=== PATIENT | female | born 1990 | race Caucasian/White ===

== ENCOUNTER 2023-04-08 19:25 | Emergency (ER) | payer OTHER, SELFPAY ==
[2023-04-08 19:42] VITALS: BP 105/72; PULSE 88; RESP 18; TEMP 36.9; O2SAT 97
[2023-04-08 20:15] LABS: Basophils Absolute Auto 0.03 K/mm3 (0.00-0.10); Basophils Percent Auto 0.4 % (0.0-1.0); Eosinophils Absolute Auto 0.09 K/mm3 (0.02-0.50); Eosinophils Percent Auto 1.2 % (1.0-6.0); Hematocrit 36.4 % (35.0-49.0); Hemoglobin 12.2 g/dL (12.0-15.0); Immature Granulocyte Absolute 0.02 K/mm3 (0.00-0.00); Immature Granulocyte Percent A 0.3 % (0.0-0.0); Lymphocytes Absolute Auto 2.45 K/mm3 (1.10-4.50); Lymphocytes Percent Auto 31.7 % (18.0-42.0); Mean Corpuscular HGB Conc 33.5 g/dL (32.0-36.0); Mean Corpuscular Volume 83.7 fL (78.0-102.0); Mean Platelet Volume 9.7 fl (9.2-11.8); Monocytes Absolute Auto 0.55 K/mm3 (0.10-0.90); Monocytes Percent Auto 7.1 % (2.0-11.0); Neutrophils Absolute Auto 4.6 K/mm3 (1.7-7.2); Neutrophils Percent Auto 59.3 % (50.0-70.0); Platelet Count Result 207 K/mm3 (150-420); Red Blood Count 4.35 M/mm3 (4.20-5.40); Red Cell Distribution Width 12.7 % (11.6-14.4); White Blood Count 7.7 K/mm3 (4.8-10.8)
[2023-04-08 20:31] LABS: Alanine Aminotransferase 20 U/L (14-59); Albumin Level 4.1 g/dL (3.4-5.0); Alkaline Phosphatase 95 U/L (46-116); Anion Gap 6 mmol/L (8-16); Aspartate Amino Transferase 13 U/L (15-37); Bilirubin,Total 0.4 mg/dL (0.00-1.00); Blood Urea Nitrogen 2 mg/dL (7-18); Calcium 9.4 mg/dL (8.5-10.1); Carbon Dioxide 31 mmol/L (21-32); Chloride 98 mmol/L (98-108); Estimated Glomerular Filt Rate > 60; Glucose 115 mg/dL (70-99); Osmolality Calculated 277 mOsm/kg (285-295); Potassium 3.2 mmol/L (3.5-5.1); Sodium 135 mmol/L (136-145); Total Protein 7.7 g/dL (6.4-8.2)
[2023-04-08 20:35] LABS: Lactic Acid Reflex 0.8 mmol/L (0.4-2.0)
--- NOTE | 2023-04-08 20:49 | ED.WOUNDLAC ---
HPI - Wound/Laceration General Chief Complaint: Wound/Laceration Stated Complaint: wound with pus drainage l hip Time Seen by Provider: 04/08/23 19:27 Source: patient Mode of arrival: ambulatory Limitations: no limitations History of Present Illness HPI narrative: this is a 32-year-old female who presents with a area of erythema with a central lesion approximately 3cm in diameter that is red warm currently draining nonfluctuant with low-grade fever, with no chest pain no shortness of breath patient has no history of diabetes. Onset (ago): day(s) Location: other Extremity Location: Left: thigh ( nonfluctuant red draining area approximately 3cm in diameter) Related Data Home Medications Medication Instructions Recorded Confirmed calcium carbonate 200 mg calcium 200 mg PO BID 05/13/20 (500 mg) chewable tablet (Tums) glucosamine-chondroitin 250 mg-200 2 tablet PO TID 05/13/20 mg tablet (Osteo Bi-Flex) medroxyprogesterone 150 mg/mL 150 mg IM [id number] 05/13/20 intramuscular suspension (Depo-Provera) Allergies Allergy/AdvReac Type Severity Reaction Status Date / Time weed pollen Allergy Mild unknown Verified 04/08/23 19:27 Review of Systems Review of Systems: All systems reviewed & are unremarkable except as noted in HPI and below PMFSH Past Medical History Medical History GERD (gastroesophageal reflux disease) Social History Social History Smoking status: Current every day smoker Tobacco type: cigarettes Substance use: current Exam Const: General: healthy appearing Nutritional Appearance: well nourished Orientation/consciousness: patient oriented x3 Limitations: no limitations Chest: Chest palpation & inspection: normal inspection of the chest Resp: Effort & Inspection: normal respiratory effort Auscultation: clear to auscultation bilaterally Cardio: Rate: regular rate Rhythm: regular rhythm GI: GI Palp: Yes Soft to palpation Skin: General skin exam: normal color Wounds: wounds noted Other: 3Cm lesion that is warm red and tender to touch it is nonfluctuant currently there is some drainage. Extrem: General: normal to inspection Psych: Mental Status: mental status grossly normal Affect: normal affect Course Course Emergency Course: Patient had labs performed white count is normal patient had a decreased potassium will give her a dose of p.o. potassium, patient received IV ceftriaxone labs reviewed patient and be sending antibiotic to patient's pharmacy. Vital Signs Vital signs: Vital Signs Temperature 36.9 C 04/08/23 19:42 Pulse Rate 88 04/08/23 19:42 Respiratory Rate 18 04/08/23 19:42 Blood Pressure 105/72 04/08/23 19:42 Pulse Oximetry 97 04/08/23 19:42 Oxygen Delivery Room Air 04/08/23 19:42 Temperature 36.9 C 04/08/23 19:42 Pulse Rate 88 04/08/23 19:42 Respiratory Rate 18 04/08/23 19:42 Blood Pressure 105/72 04/08/23 19:42 Pulse Oximetry 97 04/08/23 19:42 Oxygen Delivery Room Air 04/08/23 19:42 MDM - Wound/Laceration Lab Data 04/08/23 20:08 04/08/23 20:08 Labs: Lab Results 04/08/23 Range/Units 20:08 WBC 7.7 (4.8-10.8) K/mm3 RBC 4.35 (4.20-5.40) M/mm3 Hgb 12.2 (12.0-15.0) g/dL Hct 36.4 (35.0-49.0) % MCV 83.7 (78.0-102.0) fL MCH 28.0 (27.0-31.0) pg MCHC 33.5 (32.0-36.0) g/dL RDW 12.7 (11.6-14.4) % Plt Count 207 (150-420) K/mm3 MPV 9.7 (9.2-11.8) fl Immature Gran % (Auto) 0.3 H (0.0-0.0) % Neut % (Auto) 59.3 (50.0-70.0) % Lymph % (Auto) 31.7 (18.0-42.0) % [place] % (Auto) 7.1 (2.0-11.0) % Eos % (Auto) 1.2 (1.0-6.0) % Baso % (Auto) 0.4 (0.0-1.0) % Lymph # (Auto) 2.45 (1.10-4.50) K/mm3 [place] # (Auto) 0.55 (0.10-0.90) K/mm3 Eos # (Auto) 0.09 (0.02-0.50) K/mm3 Baso # (Auto) 0.03 (0.00-0.10) K/mm3 Abs I
[2023-04-08] MEDS: KETOROLAC 30 MG/ML VIAL (*BKC) IV PUSH (20:58)
[2023-04-08] MEDS: POTASSIUM BICARBONATE 25 MEQ TABEF 50 MEQ PO (21:37)
[2023-04-08 21:49] VITALS: BP 112/72; PULSE 80; RESP 18; O2SAT 97
--- NOTE | 2023-04-15 13:03 | PC.NURSE ---
final blood cultures x2 reviewed. no growth after 5 days. no change in plan of care
== END 2023-04-08 21:51 | disposition home or self-care (01) ==
PROVIDERS: Emergency Provider Emergency Medicine
DX: L03.116 Cellulitis of left lower limb (principal); F17.210 Nicotine dependence, cigarettes, uncomplicated
CPT/HCPCS: 36415; 80053; 83605; 85025; 87040; 96365; 96375; 99284; A9270; J0696; J1885